=== PATIENT | female | born 1930 | race Caucasian/White ===

== ENCOUNTER 2017-04-20 09:25 | Emergency (ER) | payer OTHER, MEDICARE ==
--- NOTE | 2017-04-20 09:36 | PDOC ---
Attending Attestation - Resident Resident Name: Latesha Bauer - ED Attending Attestation I have performed the following: I have examined & evaluated the patient, The case was reviewed & discussed with the resident, I agree w/resident's findings & plan, Exceptions are as noted - HPI HPI: 04/20/17 10:08 The patient is an 87-year-old female, immunocompetent, with recent stress in her life secondary to the of her , who presents to the emergency department with a painful rash on her right lower extremity, posteriorly. It does not cross the midline. It began on Saturday, in the posterior/medial gluteal area, and has since spread posteriorly down her leg. She has not noted any rash in any other location. She denies fever, chills, sweats. - Physicial Exam PE: 04/20/17 10:06 Vesicular rash in S2 dermatomal distribution with some surrounding erythema in patches It does not cross the midline 04/20/17 10:08 - Medical Decision Making 04/20/17 10:07 Clinical impression: Varicela zoster in the S2 dermatome Some evidence of possible early bacterial superinfection Will treat with Acyclovir, topical bactroban I discussed the physical exam findings, ancillary test results and final diagnoses with the patient. I answered all of the patient's questions. The patient was satisfied with the care received and felt comfortable with the discharge plan and treatment plan. The patient will call their primary care physician within 24 hours to arrange follow-up and will return to the Emergency Department with any new, persistent or worsening symptoms. A portion of this note was documented by scribe services under my direction. I have reviewed the details of the note, within reason, and agree with the documentation with the following case summary and management plan written by me. Discharge Disposition - Diagnosis Shingles - Discharge Dispostion Disposition: HOME Condition at time of disposition: Good Last Admission D/C Date: 05/07/03 - Prescriptions Prescriptions: Mupirocin Cream [Bactroban 2% Cream -] 1 applic TP BID #2 tube Lidocaine 5% Patch [Lidoderm Patch -] 1 patch TP DAILY #7 patch Valacyclovir HCl [Valtrex] 1,000 mg PO TID #21 tablet - Referrals Referrals: Bal Pugh MD [Primary Care Provider] - Call tomorrow - Patient Instructions Printed Discharge Instructions: DI for Shingles Additional Instructions: Return to the emergency department immediately with ANY new, persistent or worsening symptoms. You MUST call and follow up with your doctor tomorrow. Please make sure your doctor reviews the results of your emergency department evaluation.
[2017-04-20 09:52] VITALS: BP 132/70; PULSE 100; TEMP 97.5; BMI 18.9
--- NOTE | 2017-04-20 10:33 | PDOC ---
History of Present Illness - General Chief Complaint: Shortness of Breath Stated Complaint: SOB, H/A, RASH Time Seen by Provider: 04/20/17 09:33 History Source: Patient Exam Limitations: No Limitations - History of Present Illness Initial Comments: 04/20/17 10:30 This is an 87 yo F with PMH of emphysema, who presents due to ptchy and painful rash on posterior aspect of R leg. Patient states that rash started on Tue on her R buttock and expanded pown her leg. It does not involve bottom of foot or back. it was first itchyu and vesiculat and then moderately painful when she scratches it. She denies ever having shingles or rashes before. She denies fever , chills, new foods, contact with new materials or plants, new medications or contacts with rashes. She reporst significant emotional stress stemming from of loved one. She denies chest pain, sob, n/v abd pain, diarrhea, dysuria , h/a. Past History - Travel Traveled outside of the country in the last 30 days: No Close contact w/someone who was outside of country & ill: No - Past Medical History Allergies/Adverse Reactions: Allergies Allergy/AdvReac Type Severity Reaction Status Date / Time codeine Allergy Unverified 04/17/17 13:21 NSAIDS (Non-Steroidal Allergy had Unverified 04/17/17 13:15 Anti-Inflamma perforated ulcer aspirin AdvReac Upset Uncoded 04/17/17 13:15 stomach flu vaccine AdvReac makes her Uncoded 04/17/17 13:20 sick Home Medications: Ambulatory Orders Acetaminophen [Tylenol Extra Strength] 1,000 mg PO TID PRN 04/20/17 Calcium Carbonate/Vitamin D3 [Calcium 600 + Vit D Tablet] 1 each PO DAILY Lidocaine 5% Patch [Lidoderm Patch -] 1 patch TP DAILY #7 patch 04/20/17 Mupirocin Cream [Bactroban 2% Cream -] 1 applic TP BID #2 tube 04/20/17 Mv,Ca,Fe,Min/FA/Guarana/Caff [One Daily Tablet] 1 each PO DAILY 04/20/17 Lynn-3/Dha/Epa/Fish Oil [Fish Oil 500 mg Softgel] 1 each PO DAILY 04/20/17 Valacyclovir HCl [Valtrex] 1,000 mg PO TID #21 tablet 04/20/17 COPD: Yes GI Disorders: Yes (Perforated Ulcer) Disorders: Yes (Vaginal prolapse) Hypercholesterolemia: Yes - Psycho/Social/Smoking Cessation Hx Anxiety: No Suicidal Ideation: No Smoking History: Former smoker Have you smoked in the past 12 months: No If you are a former smoker, when did you quit?: 1999 Information on smoking cessation initiated: No Hx Alcohol Use: Yes (WINE WITH SUPPER) Drug/Substance Use Hx: No Substance Use Type: None Review of Systems - Review of Systems Able to Perform ROS?: Yes Is the patient limited Arabic proficient: No Constitutional: No: Chills, Fever, Weakness HEENTM: No: Nose Congestion, Throat Pain, Difficulty Swallowing Respiratory: No: Cough, Shortness of Breath, Hemoptysis Cardiac (ROS): No: Chest Pain, Lightheadedness, Palpitations ABD/GI: No: Abdominal Distended, Constipated, Diarrhea, Difficulty Swallowing, Nausea, Vomiting : No: Dysuria, Flank Pain, Hematuria Musculoskeletal: No: Back Pain, Joint Pain, Muscle Pain Integumentary: Yes: Pruritus, Rash. No: Bruising, Flushing, Lumps Neurological: No: Headache, Numbness, Paresthesia Psychiatric: Yes: Anxiety, Stressors, Emotional Problems Endocrine: No: Unexplained Weight Loss, Change in Weight Hematologic/Lymphatic: No: Blood Clots, Easy Bruising, Swollen Glands All Other Systems: Reviewed and Negative *Physical Exam - Vital Signs Last Vital Signs Temp Pulse Resp BP Pulse Ox 97.5 F L 100 H 16 132/70 100 04/20/17 09:30 04/20/17 09:30 04/20/17 09:30 04/20/17 09:30 04/20/17 09:30 - Physical Exam Comments: 04/20/17 10:38 GENERAL: NAD, AAOx3 HEENT: normocephalic, atraumatic, PERRLA EOMI, sclera anicteric, conjunctiva clear CV: RRR S1S2 PULM: CTA b/l GI: soft, midline incisional hernia, reducible. normoactive bowel sounds. no mass SKIN: maculo papular rash extending down S2 dermatome, with vesicles filled with clear fluid, some superficial ulceration without cellulitis. mild-moderate tenderness and pruritus. does not cross midline 04/20/17 10:48 04/20/17 10:52 Heart Score/ECG Review #1 ECG reviewed & interpreted by me at: 10:20 (NS RBBB new, nospecific ST inversions in inferior leads) Medical Decision Making - Medical Decision Making 04/20/17 10:50 patient presents with clinical picture most consistent with localized nondisseminated shingles with possible superimposed bacterial infection -ekg unremarkable -start PO acyclovir, topical lidocaine, topical bactroban 04/20/17 10:52 04/20/17 10:52 04/20/17 10:52 *DC/Admit/Observation/Transfer Diagnosis at time of Disposition: Shingles - Discharge Dispostion Disposition: HOME Condition at time of disposition: Good - Prescriptions Prescriptions: Mupirocin Cream [Bactroban 2% Cream -] 1 applic TP BID #2 tube Lidocaine 5% Patch [Lidoderm Patch -] 1 patch TP DAILY #7 patch Valacyclovir HCl [Valtrex] 1,000 mg PO TID #21 tablet - Referrals Referrals: Bal Pugh MD [Primary Care Provider] - Call tomorrow - Patient Instructions Printed Discharge Instructions: DI for Shingles Additional Instructions: Return to the emergency department immediately with ANY new, persistent or worsening symptoms. You MUST call and follow up with your doctor tomorrow. Please make sure your doctor reviews the results of your emergency department evaluation. - Post Discharge Activity
--- NOTE | 2017-04-22 11:27 | EKG ---
Test Reason : Blood Pressure : / mmHG Vent. Rate : 095 BPM Atrial Rate : 095 BPM P-R Int : 140 ms QRS Dur : 122 ms QT Int : 374 ms P-R-T Axes : 083 081 001 degrees QTc Int : 469 ms NORMAL SINUS RHYTHM RIGHT BUNDLE BRANCH BLOCK T wave abnormalities in inferior leads and V3-4, consider ischemia ABNORMAL ECG WHEN COMPARED WITH ECG OF 28-APR-2003 10:57, RIGHT BUNDLE BRANCH BLOCK IS NOW PRESENT Confirmed by CHUCKY HOLDEN MD ([id number]) on 04/22/2017 11:26:43 AM Referred By: TONY YOUNG Confirmed By:CHUCKY HOLDEN MD
== END 2017-04-20 10:27 | disposition home or self-care (01) ==
LOC: FER 09:25
DX: B02.9 Zoster without complications (principal); J43.9 Emphysema, unspecified; E78.00 Pure hypercholesterolemia, unspecified; Z87.891 Personal history of nicotine dependence
CPT/HCPCS: 93005; 93010; 99282-25